=== PATIENT | female | born 1995 | race Caucasian/White ===

== ENCOUNTER 2017-07-11 16:43 | Emergency (ER) | payer MEDICAID, OTHER ==
[~2017-07-11] VITALS: Ht 167.6 cm; Wt 59.0 kg
--- NOTE | 2017-07-11 17:11 | ED Abdominal Pain ---
General Chief Complaint: Abdominal/GI Problems Stated Complaint: STOMACH PAIN/POSS GALLBLADDER Source of Information: Patient, Family Exam Limitations: No Limitations (FABY CHOUDHURY MD) History of Present Illness Time Seen By Provider: 17:13 Initial Comments This 22-year-old female presents with complaint of persistent epigastric pain. The patient has had long-standing discomfort that has been made worse with her . She is currently 3 months . The patient has a history of peptic ulcer disease. There is a family history gallbladder disease. The patient denies fever, chills, or hematemesis. She denies diarrhea cough, shortness of breath, headache or stiff neck. Patient states that her only relief is from smoking marijuana. She has not tried antiacids or other ulcer medications. (FABY CHOUDHURY MD) Allergies and Home Medications Allergies Coded Allergies: No Known Drug Allergies (Unverified , 07/11/17) Review of Systems Constitutional: No chills, No fever EENTM: No Blurred Vision, No Ear Pain Respiratory: Denies Cough Cardiovascular: Denies Chest Pain Gastrointestinal: See HPI, Abdominal Pain (epigastric) Genitourinary: Denies Burning, Denies Frequency Musculoskeletal: No back pain Skin: No change in color, No rash Psychiatric/Neurological: No Symptoms Reported Endocrine: No Symptoms Reported Hematologic/Lymphatic: No Symptoms Reported (FABY CHOUDHURY MD) Past Xlvpvsq-Gpfwyj-Oqayjk Hx Patient Social History Alcohol Use: Denies Use Recreational Drug Use: Yes Drug of Choice: MARIJUANA Smoking Status: Current Everyday Smoker Type Used: Cigarettes 2nd Hand Smoke Exposure: Yes Recent Foreign Travel: No Contact w/Someone Who Travel: No Recent Hopitalizations: No (FABY CHOUDHURY MD) Seasonal Allergies Seasonal Allergies: No (FABY CHOUDHURY MD) Surgeries History of Surgeries: Yes Surgeries: Eye Surgery (FABY CHOUDHURY MD) Reviewed Nursing Assessment Reviewed/Agree w Nursing PMH: Yes (FABY CHOUDHURY MD) Physical Exam Vital Signs VS - Last 72 Hours, by Label 07/11/17 17:04 Temp 98.1 Pulse 115 Resp 20 B/P (MAP) 115/75 (88) Pulse Ox 100 O2 Delivery Room Air (ALBERTO,BREANA K DO) Vital Signs Capillary Refill : (FABY CHOUDHURY MD) General Appearance: WD/WN, no apparent distress HEENT: normal ENT inspection Neck: non-tender, full range of motion Respiratory: chest non-tender, lungs clear Cardiovascular: normal peripheral pulses, regular rate, rhythm, no edema Gastrointestinal: normal bowel sounds, tenderness (there is moderate epigastric tenderness.), other (patient's abdominal exam was consistent with a 3 month gestation.) Extremities: normal range of motion, non-tender Back: normal inspection Skin: normal color, warm/dry (FABY CHOUDHURY MD) Progress/Results/Core Measures Results/Orders Lab Results Laboratory Tests Test 07/11/17 17:25 07/11/17 18:53 Range/Units White Blood Count 22.9 H 4.3-11.0 10^3/uL Red Blood Count 4.29 L 4.35-5.85 10^6/uL Hemoglobin 13.8 11.5-16.0 G/DL Hematocrit 40 35-52 % Mean Corpuscular Volume 92 80-99 FL Mean Corpuscular Hemoglobin 32 25-34 PG Mean Corpuscular Hemoglobin Concent 35 32-36 G/DL Red Cell Distribution Width 13.1 10.0-14.5 % Platelet Count 351 130-400 10^3/uL Mean Platelet Volume 9.8 7.4-10.4 FL Neutrophils (%) (Auto) 93 H 42-75 % Lymphocytes (%) (Auto) 6 L 12-44 % Monocytes (%) (Auto) 1 0-12 % Eosinophils (%) (Auto) 0 0-10 % Basophils (%) (Auto) 0 0-10 % Neutrophils # (Auto) 21.2 H 1.8-7.8 X 10^3 Lymphocytes # (Auto) 1.4 1.0-4.0 X 10^3 Monocytes # (Auto) 0.3 0.0-1.0 X 10^3 Eosinophils # (Auto) 0.0 0.0-0.3 10^3/uL Basophils # (Auto) 0.0 0.0-0.1 10^3/uL Neutrophils % (Manual) 86 % Lymphocytes % (Manual) 6 % Monocytes % (Manual) 2 % Eosinophils % (Manual) 0 % Basophils % (Manual) 0 % Band Neutrophils 6 % Blood Morphology Comment NORMAL Sodium Level 138 135-145 MMOL/L Potassium Level 3.7 3.6-5.0 MMOL/L Chloride Level 106 98-107 MMOL/L Carbon Dioxide Level 20 L 21-32 MMOL/L Anion Gap 12 5-14 MMOL/L Blood Urea Nitrogen 10 7-18 MG/DL Creatinine 0.60 0.60-1.30 MG/DL Estimat Glomerular Filtration Rate > 60 BUN/Creatinine Ratio 17 Glucose Level 162 H 70-105 MG/DL Calcium Level 9.4 8.5-10.1 MG/DL Total Bilirubin 0.4 0.1-1.0 MG/DL Aspartate Amino Transf (AST/SGOT) 14 5-34 U/L Alanine Aminotransferase (ALT/SGPT) 14 0-55 U/L Alkaline Phosphatase 43 40-136 U/L Total Protein 7.3 6.4-8.2 GM/DL Albumin 4.1 3.2-4.5 GM/DL Lipase 6 L 8-78 U/L Urine Color YELLOW Urine Clarity VERY CLOUDY H Urine pH 7 5-9 Urine Specific [place] 1.015 L 1.016-1.022 Urine Protein NEGATIVE NEGATIVE Urine Glucose (UA) 3+ H NEGATIVE Urine Ketones 4+ H NEGATIVE Urine Nitrite NEGATIVE NEGATIVE Urine Bilirubin NEGATIVE NEGATIVE Urine Urobilinogen NORMAL NORMAL MG/DL Urine Leukocyte Esterase NEGATIVE NEGATIVE Urine RBC (Auto) 1+ H NEGATIVE Urine RBC 2-5 H /HPF Urine WBC 0-2 /HPF Urine Squamous Epithelial Cells 10-25 H /HPF Urine Crystals PRESENT H /LPF Urine Amorphous Sediment MOD IGNACIO URATES H /LPF Urine Bacteria NONE /HPF Urine Casts NONE /LPF Urine Mucus NEGATIVE /LPF Urine Culture Indicated NO Urine Opiates Screen NEGATIVE NEGATIVE Urine Oxycodone Screen NEGATIVE NEGATIVE Urine Methadone Screen NEGATIVE NEGATIVE Urine Propoxyphene Screen NEGATIVE NEGATIVE Urine Barbiturates Screen NEGATIVE NEGATIVE Ur Tricyclic Antidepressants Screen NEGATIVE NEGATIVE Urine Phencyclidine Screen NEGATIVE NEGATIVE Urine Amphetamines Screen NEGATIVE NEGATIVE Urine Methamphetamines Screen NEGATIVE NEGATIVE Urine Benzodiazepines Screen NEGATIVE NEGATIVE Urine Cocaine Screen NEGATIVE NEGATIVE Urine Cannabinoids Screen POSITIVE H NEGATIVE (BREANA DOMINGUEZ DO) My Orders Orders - BREANA DOMINGUEZ DO Drug Screen Stat (Urine) (07/11/17 18:06) Famotidine Injection (Pepcid Injection) (07/11/17 18:15) Ondansetron Injection (Zofran Injectio (07/11/17 18:15) Promethazine Injection (Phenergan Injec (12/16/17 19:15) Diphenhydramine Injection (Benadryl Inje (07/11/17 19:15) (BREANA DOMINGUEZ DO) Medications Given in ED Current Medications Medications Dose Ordered Sig/Irvin Route Start Time Stop Time Status Last Admin Dose Admin Al Hydrox/Mg Hydrox/Simethicone 30 ml ONCE ONCE PO 07/11/17 17:15 07/11/17 17:16 DC 07/11/17 17:25 30 ML Famotidine 40 mg ONCE ONCE IVP 07/11/17 18:15 07/11/17 18:16 DC 07/11/17 18:15 40 MG Lidocaine HCl 5 ml ONCE ONCE PO 07/11/17 17:15 07/11/17 17:16 DC 07/11/17 17:25 5 ML Ondansetron HCl 4 mg STK-MED ONCE .ROUTE 07/11/17 17:41 07/11/17 17:43 DC 07/11/17 17:44 4 MG (BREANA DOMINGUEZ DO) Vital Signs/I&O Vital Sign - Last 12Hours 07/11/17 17:04 Temp 98.1 Pulse 115 Resp 20 B/P (MAP) 115/75 (88) Pulse Ox 100 O2 Delivery Room Air (BREANA DOMINGUEZ DO) Progress Note : Progress Note 1800--ASSUMED CARE FROM DR. CHOUDHURY. ULTRASOUND PENDING PT CONTINUES TO C/O NAUSEA AND DRY HEAVES PT IS VERY JUVENILE/IMMATURE IN BEHAVIOR PT HAS NOT ATTEMPTED TO ESTABLISH OB CARE FOR THIS , BUT PLANS ON SEEING DR. AVELAR IN [facility]. (BREANA DOMINGUEZ DO) Diagnostic Imaging Comments ULTRASOUND--NORMAL, PER RADIOLOGIST REPORT @ 1917 Reviewed: Reviewed by Me (BREANA DOMINGUEZ DO) Departure Impression Impression: Primary Impression: Nausea and vomiting during prior to 22 weeks gestation Additional Impressions: CHRONIC DAILY MARIJUANA USE MILD HYPERGLYCEMIA Disposition: 01 HOME, SELF-CARE Condition: Stable Departure-Patient Inst. Referrals: RODGER SCHAEFER MD (PCP/Family) Primary Care Physician VALENTINO Patient Instructions: Alcohol and Illegal Drug Use in , Drug Abuse and Drug Addiction (DC), How to Plan and Prepare for a Healthy , Marijuana Use and Addiction (DC), Nausea and Vomiting of (DC), - The Fourth Month, - The Third Month, Smoking and Add. Discharge Instructions: CLEAR LIQUIDS--WATER, BROTH, JELLO, GATORADE WHEN YOUR NAUSEA IS BETTER, ADD BRATS DIET TO CLEAR LIQUIDS--BANANAS, RICE, APPLEASAUCE, TOAST, SALTINES FOLLOW UP WITH YOUR DR ON THURSDAY FOR FURTHER CARE All discharge instructions reviewed with patient and/or family. Voiced understanding. Scripts Doxylamine/Pyridoxine HCl (Elinor Small 10-10 mg Tablet) 1 Each Tablet.dr 2 EACH PO HS, #14 TAB Prov: BREANA DOMINGUEZ DO 07/11/17 Ondansetron (Zofran Odt) 4 Mg Tab.rapdis 4 MG PO Q4H for Nausea/Vomiting, #10 TAB Prov: BREANA DOMINGUEZ DO 07/11/17 FABY CHOUDHURY MD Jul 11, 2017 17:11 BREANA DOMINGUEZ DO Jul 11, 2017 19:02
[2017-07-11] MEDS ORDERED: NS IV 1000 ML 1,000 ML IV SCH (17:15)
[2017-07-11] MEDS ORDERED: LIDOCAINE 2% VISCOUS 15 ML UDC PO ONE (17:15)
[2017-07-11] MEDS ORDERED: ANTACID SUSP 30 ML UDC (MYLANTA) PO ONE (17:15)
[2017-07-11 17:37] LABS: BASOPHILS % (AUTO) 0 % (0-10); EOSINOPHILS % (AUTO) 0 % (0-10); LYMPHOCYTES # (AUTO) 1.4 X 10^3 (1.0-4.0); LYMPHOCYTES % (AUTO) 6 % (12-44); MEAN CORPUSCULAR HEMOGLOBIN 32 PG (25-34); MEAN CORPUSCULAR HGB CONC 35 G/DL (32-36); MEAN CORPUSCULAR VOLUME 92 FL (80-99); MEAN PLATELET VOLUME 9.8 FL (7.4-10.4); MONOCYTES # (AUTO) 0.3 X 10^3 (0.0-1.0); MONOCYTES % (AUTO) 1 % (0-12); NEUTROPHILS # (AUTO) 21.2 X 10^3 (1.8-7.8); NEUTROPHILS % (AUTO) 93 % (42-75); PLATELET COUNT 351 10^3/uL (130-400); RED BLOOD COUNT 4.29 10^6/uL (4.35-5.85); RED CELL DISTRIBUTION WIDTH 13.1 % (10.0-14.5); WHITE BLOOD COUNT 22.9 10^3/uL (4.3-11.0)
[2017-07-11] MEDS ORDERED: ONDANSETRON 4 MG/2 ML (SDV) Z0FRAN ONE (17:41)
[2017-07-11 17:57] LABS: ALANINE AMINOTRANSFERASE 14 U/L (0-55); ALBUMIN 4.1 GM/DL (3.2-4.5); ANION GAP 12 MMOL/L (5-14); ASPARTATE AMINO TRANSFERASE 14 U/L (5-34); BILIRUBIN,TOTAL 0.4 MG/DL (0.1-1.0); BLOOD UREA NITROGEN 10 MG/DL (7-18); BUN/CREATININE RATIO 17; CALCIUM 9.4 MG/DL (8.5-10.1); CARBON DIOXIDE 20 MMOL/L (21-32); CHLORIDE 106 MMOL/L (98-107); GFR ESTIMATED > 60; GLUCOSE 162 MG/DL (70-105); LIPASE 6 U/L (8-78); POTASSIUM 3.7 MMOL/L (3.6-5.0); SODIUM 138 MMOL/L (135-145); TOTAL PROTEIN 7.3 GM/DL (6.4-8.2)
[2017-07-11 17:58] LABS: BAND NEUTROPHILS 6 %; BASOPHILS % (MANUAL) 0 %; EOSINOPHILS % (MANUAL) 0 %; LYMPHOCYTES % (MANUAL) 6 %; NEUTROPHILS % (MANUAL) 86 %
[2017-07-11] MEDS ORDERED: ONDANSETRON 4 MG/2 ML (SDV) Z0FRAN IVP ONE (18:15)
[2017-07-11] MEDS ORDERED: FAMOTIDINE 20MG/2ML IV (PEPCID) IVP ONE (18:15)
--- NOTE | 2017-07-11 19:11 | Diagnostic Imaging Report ---
PROCEDURE: US gallbladder. TECHNIQUE: Multiple real-time grayscale images were obtained over the right upper quadrant in various projections. INDICATION: Abdominal pain. FINDINGS: The liver appears normal. The gallbladder is normal. The bile duct is normal. Visualized portions of the pancreas are normal. The unobstructed right kidney is normal in size, cortical thickness and echotexture. There is no ascites. There is no fluid collection. IMPRESSION: This is a normal right upper quadrant ultrasound. Dictated by: Dictated on workstation # [id number]
[2017-07-11 19:13] LABS: BILIRUBIN,URINE NEGATIVE (NEGATIVE); KETONES,URINE 4+ (NEGATIVE); LEUKOCYTE ESTERASE ,URINE NEGATIVE (NEGATIVE); NITRITE,URINE NEGATIVE (NEGATIVE); PH,URINE 7 (5-9); PROTEIN,URINE NEGATIVE (NEGATIVE); UROBILINOGEN,URINE NORMAL (NORMAL)
[2017-07-11] MEDS ORDERED: diphenhydrAMINE 50 MG/ML INJ (BENADRYL) IVP ONE (19:15)
[2017-07-11] MEDS ORDERED: PROMETHAZINE INJ 25 MG/ML (PHENERGAN) AMP IVP ONE (19:15)
[2017-07-11 19:20] LABS: WBC,URINE 0-2 /HPF
[2017-07-11] MEDS ORDERED: DOXY1TAB3 PO (19:46)
[2017-07-11] MEDS ORDERED: ONDA4TAB8 PO (19:46)
[2017-07-11 20:21] VITALS: BP 97/52
== END 2017-07-11 20:21 | disposition home or self-care (01) ==
LOC: ER 16:48
DX: O21.2 Late vomiting of pregnancy (principal); O99.322 Drug use complicating pregnancy, second trimester; F12.90 Cannabis use, unspecified, uncomplicated; O99.89 Other specified diseases and conditions complicating pregnancy, childbirth and the puerperium; R73.9 Hyperglycemia, unspecified; O99.332 Smoking (tobacco) complicating pregnancy, second trimester; F17.210 Nicotine dependence, cigarettes, uncomplicated; Z87.19 Personal history of other diseases of the digestive system; Z3A.22 22 weeks gestation of pregnancy
CPT/HCPCS: 36415; 76705; 80053; 80306; 81000; 83690; 85007; 85027

== ENCOUNTER 2018-12-07 11:00 | Emergency (ER) | payer SELFPAY ==
[~2018-12-07] VITALS: Ht 162.6 cm; Wt 63.5 kg
[~2018-12-07 11:00] MED LIST: DOXY1TAB3 PO; ONDA4TAB8 PO
[2018-12-07] MEDS ORDERED: ONDANSETRON 4 MG (ZOFRAN) ORAL DISSOLVE TAB PO STA (11:26)
[2018-12-07] MEDS ORDERED: ONDA4TAB11 PO (11:29)
--- NOTE | 2018-12-07 11:35 | ED GI ---
General Chief Complaint: Abdominal/GI Problems Stated Complaint: VOMITING Source of Information: Patient History of Present Illness Date Seen by Provider: December 07, 2018 Time Seen by Provider: 11:34 Initial Comments Patient is a G3, P2, 4 week gestation female who presents with nausea and vomiting associated with . Patient states she missed her menstrual period and tested positive with a home Last week. Reports nausea and intermittent vomiting for the past 2 days. No diarrhea. No chest pain palpitations, shortness of breath. No urinary frequency urgency or burning. Pior pregnancies complicated with morning sickness. History of marijuana use. Timing/Duration: 1-2 Days Severity/Quality: Mild Radiation: No Radiation Modifying Factors: Improves With Other Associated Symptoms: Denies Symptoms Allergies and Home Medications Allergies Coded Allergies: No Known Drug Allergies (Unverified , 07/11/17) Home Medications Doxylamine/Pyridoxine HCl 1 Each Tablet.dr, 2 EACH PO HS Prescribed by: BREANA DOMINGUEZ on 07/11/171945 Ondansetron 4 Mg Tab.rapdis, 4 MG PO Q4H Prescribed by: BREANA DOMINGUEZ on 07/11/171945 Ondansetron 4 Mg Tab.rapdis, 4 MG PO Q6H PRN for NAUSEA/VOMITING-1ST LINE Prescribed by: BHASKAR PARIKH on 12/07/18 1129 Patient Home Medication List Home Medication List Reviewed: Yes Review of Systems Review of Systems Constitutional: no symptoms reported EENTM: No Symptoms Reported Respiratory: See HPI Cardiovascular: No Symptoms Reported Gastrointestinal: See HPI Genitourinary: No Symptoms Reported Musculoskeletal: no symptoms reported Endocrine: No Symptoms Reported Past Usrkluu-Bevflx-Adaopl Hx Past Med/Social Hx: Reviewed Nursing Past Med/Soc Hx Patient Social History Drug of Choice: MARIJUANA Type Used: Cigarettes 2nd Hand Smoke Exposure: Yes Recent Hopitalizations: No Seasonal Allergies Seasonal Allergies: No Past Medical History Surgeries: Yes Eye Surgery Physical Exam Vital Signs Capillary Refill : Height/Weight/BMI Height: 5'6.00" Weight: 130lbs. oz. 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 No vomiting in the ED. Abdomen soft, nontender. Antiemetics given. Will treat supportively with PCP/OB follow-up. Impression Primary Impression: Vomiting during Disposition: HOME, SELF-CARE Condition: Improved Departure-Patient Inst. Patient Instructions: Morning Sickness (DC) Add. Discharge Instructions: Please take nausea medications as directed and daily ant-acid. Drink clear liquids only for the next 6 hours, then gradually increase to bland diet as tolerated. Follow up with your local PCP for re-evaluation. All discharge instructions reviewed with patient and/or family. Voiced understanding. Scripts Ondansetron (Ondansetron Odt) 4 Mg Tab.rapdis 4 MG PO Q6H PRN for NAUSEA/VOMITING-1ST LINE, #20 TAB Prov: BHASKAR PARIKH DO 12/07/18 BHASKAR PARIKH DO December 07, 2018 11:35
[2018-12-07 11:40] VITALS: BP 109/51
== END 2018-12-07 11:40 | disposition home or self-care (01) ==
LOC: EDUNIT# 11:00 → ER FS 11:01
DX: O21.9 Vomiting of pregnancy, unspecified (principal); O99.321 Drug use complicating pregnancy, first trimester; F12.10 Cannabis abuse, uncomplicated; Z77.22 Contact with and (suspected) exposure to environmental tobacco smoke (acute) (chronic); Z3A.01 Less than 8 weeks gestation of pregnancy

== ENCOUNTER 2021-01-18 18:07 | Emergency (ER) | payer MEDICAID, OTHER ==
[~2021-01-18 18:07] MED LIST changes: +ONDA4TAB11 PO
[2021-01-18 18:10] VITALS: BP 169/89
--- NOTE | 2021-01-18 18:27 | ED General ---
General Chief Complaint: General Problems/Pain Stated Complaint: BLOOD CLOT History of Present Illness Date Seen by Provider: Jan 18, 2021 Time Seen by Provider: 18:20 Initial Comments 25-year-old female presents after passing a blood clot vaginally while at work today. She was alarmed without significant miscarriage. Has not had a positive test at home and did not suspect that she was . She has had 4 children and has never had a similar random blood clot. Her last menstrual period was 1 month ago so she is due to have her period currently. Denies any recent illness, fever chills or abdominal pain. Denies nausea or vomiting. Denies any pain with urination. Allergies and Home Medications Allergies Coded Allergies: No Known Drug Allergies (Unverified , 07/11/17) Home Medications Doxylamine/Pyridoxine HCl 1 Each Tablet.dr, 2 EACH PO HS Prescribed by: BREANA DOMINGUEZ on 07/11/171945 Ondansetron 4 Mg Tab.rapdis, 4 MG PO Q4H Prescribed by: BREANA DOMINGUEZ on 07/11/171945 Ondansetron 4 Mg Tab.rapdis, 4 MG PO Q6H PRN for NAUSEA/VOMITING-1ST LINE Prescribed by: BHASKAR PARIKH on 12/07/18 1129 Patient Home Medication List Home Medication List Reviewed: Yes Review of Systems Review of Systems Constitutional: No dizziness, No fever, No malaise, No weakness Respiratory: no symptoms reported Cardiovascular: no symptoms reported Gastrointestinal: No abdominal pain, No nausea, No vomiting Genitourinary: see HPI; No dysuria, No frequency, No hematuria, No hesitancy, No pain Past Odumpmm-Egfklz-Uhlval Hx Past Med/Social Hx: Reviewed Nursing Past Med/Soc Hx Patient Social History Alcohol Use: Denies Use Drug of Choice: hx Marijuana Smoking Status: Current Everyday Smoker Type Used: Electronic/Vapor 2nd Hand Smoke Exposure: No Recent Hopitalizations: No Immunizations Up To Date Tetanus Booster (TDap): Less than 5yrs Seasonal Allergies Seasonal Allergies: No Past Medical History Surgeries: No Eye Surgery Respiratory: No Cardiac: No Neurological: No Genitourinary: No Gastrointestinal: No Musculoskeletal: No Endocrine: No HEENT: No Cancer: No Psychosocial: No Integumentary: No Blood Disorders: No Physical Exam Vital Signs Capillary Refill : Height, Weight, BMI Height: 5'4.00" Weight: 140lbs. oz. 63.123665it; BMI Method:Stated General Appearance: No Apparent Distress, WD/WN Neurologic/Psychiatric: Alert, Oriented x3, Normal Mood/Affect Progress/Results/Core Measures Suspected Sepsis SIRS Temperature: Pulse: Respiratory Rate: Blood Pressure / Mean: Results/Orders My Orders Orders - MARLENE ORTIZ DO Urinalysis (01/18/21 18:19) Vital Signs/I&O Capillary Refill : Departure Impression Primary Impression: DUB (dysfunctional uterine bleeding) Disposition: 01 HOME, SELF-CARE Condition: Stable Departure-Patient Inst. Decision time for Depature: 18:27 Referrals: RODGER SCHAEFER MD (PCP/Family) Primary Care Physician Patient Instructions: Heavy Periods (DC) Add. Discharge Instructions: Take 800mg Ibuprofen three times daily as needed for cramping and heavy bleeding during your period All discharge instructions reviewed with patient and/or family. Voiced understanding. MARLENE ORTIZ DO Jan 18, 2021 18:27
[2021-01-18 18:34] LABS: BACTERIA,URINE FEW /HPF; BILIRUBIN,URINE NEGATIVE (NEGATIVE); CLARITY,URINE SLIGHLTY CLOUDY; COLOR,URINE YELLOW; GLUCOSE, URINE (UA) NEGATIVE (NEGATIVE); KETONES,URINE NEGATIVE (NEGATIVE); LEUKOCYTE ESTERASE ,URINE NEGATIVE (NEGATIVE); NITRITE,URINE NEGATIVE (NEGATIVE); PH,URINE 5.5 (5-9); PROTEIN,URINE 1+ (NEGATIVE); RBC,URINE 50-100 /HPF
== END 2021-01-18 18:33 | disposition home or self-care (01) ==
LOC: EDUNIT# 18:07 → ER FS 18:08
DX: N93.8 Other specified abnormal uterine and vaginal bleeding (principal); F17.290 Nicotine dependence, other tobacco product, uncomplicated
CPT/HCPCS: 81000; 84703; 99282